=== PATIENT | female | born 1965 | race Caucasian/White ===

== ENCOUNTER → 2016-09-08 | Outpatient (CLI) | payer MEDICAID ==
[2016-09-08 09:37] LABS: CH 29.8; CHCM 33.3; HCT 49.1 % (34.0-46.0); HDW 2.33; HGB 16.3 gm/dL (11.4-16.0); MCH 29.8 pg (25.0-35.0); MCHC 33.2 g/dL (31.0-37.0); MCV 89.9 fL (80.0-100.0); Mean Platelet Volume 8.4; RBC 5.46 m/uL (3.80-5.40); RDW 12.7 % (11.5-15.5); WBC 15.5 k/uL (3.8-10.6)
[2016-09-08 09:53] LABS: ALT 37 U/L (9-52); AST 22 U/L (14-36); Alkaline Phosphatase 78 U/L (38-126); Anion Gap 11 mmol/L; Blood Urea Nitrogen 19 mg/dL (7-17); Calcium 9.6 mg/dL (8.4-10.2); Carbon Dioxide 25 mmol/L (22-30); Chloride 105 mmol/L (98-107); Cholesterol 156 mg/dL (<200); Glucose 177 mg/dL (74-99); HDL Cholesterol 39 mg/dL (40-60); Magnesium 1.7 mg/dL (1.6-2.3); Non-African American GFR(MDRD) >60 (>60 ml/min/1.73 sqM); Potassium 4.3 mmol/L (3.5-5.1); Sodium 141 mmol/L (137-145); Total Bilirubin 0.4 mg/dL (0.2-1.3); Total Protein 7.2 g/dL (6.3-8.2); Triglycerides 188 mg/dL (<150)
[2016-09-08 11:39] LABS: Hemoglobin A1C 8.8 % (4.2-6.1)
== END | disposition home or self-care (01) ==
LOC: LABWHC1 09:07
PROVIDERS: ATTEND Family Medicine
DX: E11.9 Type 2 diabetes mellitus without complications (principal); J44.9 Chronic obstructive pulmonary disease, unspecified; E46 Unspecified protein-calorie malnutrition; E78.00 Pure hypercholesterolemia, unspecified
CPT/HCPCS: 36415; 80053; 80061; 83036; 83735; 84443; 85027

== ENCOUNTER → 2016-09-14 | Outpatient (CLI) | payer MEDICAID ==
--- NOTE | 2016-09-14 08:07 | XR ---
EXAMINATION TYPE: XR chest 2V DATE OF EXAM: 09/14/2016 8:02 AM COMPARISON: 16 HISTORY: Shortness of breath TECHNIQUE: Frontal and lateral views of the chest are obtained. FINDINGS: There is no focal air space opacity, pleural effusion, or pneumothorax seen. The cardiac silhouette size is within normal limits. The osseous structures are intact. IMPRESSION: No acute cardiopulmonary process.
[2016-09-15 13:00] LABS: Alternaria alternata IgE <0.35 kU/L (<0.35); Asperg. fumagatus IgE <0.35 kU/L (<0.35); Asperg. fumagatus IgE Class CLASS 0; Cat Epith & Dander IgE <0.35 kU/L (<0.35); Cat Epith & Dander IgE Class CLASS 0; Clad herbarum IgE <0.35 kU/L (<0.35); Clad herbarum IgE Class CLASS 0; Com. Pigweed IgE <0.35 kU/L (<0.35); Com. Pigweed IgE Class CLASS 0; Common Ragweed IgE Class CLASS 0; Cow's Milk IgE Class CLASS 0; Dermato. farinae IgE <0.35 kU/L (<0.35); Dermato. farinae IgE Class CLASS 0; House Dust (Greer) IgE <0.35 kU/L (<0.35); House Dust (Greer) IgE Class CLASS 0; Maple (Box Elder) IgE <0.35 kU/L (<0.35); Maple (Box Elder) IgE Class CLASS 0; Penicillium notatum IgE Class CLASS 0; Timothy Grass IgE <0.35 kU/L (<0.35); Timothy Grass IgE Class CLASS 0
[2016-09-21 11:47] LABS: Mis test requested (Blood) HYPERSEN PNEUMONITIS
== END | disposition home or self-care (01) ==
LOC: RADXRMAIN 07:50
PROVIDERS: ATTEND Internal Medicine Sleep Medicine
DX: J44.9 Chronic obstructive pulmonary disease, unspecified (principal); B44.89 Other forms of aspergillosis
CPT/HCPCS: 36415; 71020; 82785; 86001; 86003; 86606; 86609

== ENCOUNTER → 2016-10-31 | Outpatient (CLI) | payer MEDICAID ==
[2016-10-31 16:36] VITALS: BP 112/81; PULSE 102; RESP 15; TEMP 97.9; BMI 40.3
--- NOTE | 2016-10-31 16:45 | P.HPBAR ---
Bariatric H&P - History & Physicial H&P Date: 10/31/16 History & Physicial: Visit/CC: Patient initial contact: Initial weight: Initial weight in pounds: Height: 5 ft 5.75 in Initial BMI: Last weight: Current weight: 112.446 kg Current weight in pounds: 247.90 Current BMI: 40.3 [place] body weight (based on NIH guidelines): 58.4 kg Excess body weight loss: The patient is a 51 year-old F who presents for Bariatric Assessment. The patient presents today for bariatric follow-up. I have not seen her over here. Her LAP-BAND was removed to gastric prolapse and issues of chronic dysphagia and GERD. The patient has had weight gain since her LAP-BAND was removed. Her current BMI is 40. The patient is requesting to have her LAP-BAND replaced. Past Medical History Past Medical History: Diabetes Mellitus, GERD/Reflux, Hearing Disorder / Deafness, Hyperlipidemia, Skin Disorder Additional Past Medical History / Comment(s): HAS BOILS IN SKIN FOLDS. VARICOSE VEINS, slightly hearing impaired bilateral, History of Any Multi-Drug Resistant Organisms: None Reported Past Surgical History: Bariatric Surgery, Ear Surgery Additional Past Surgical History / Comment(s): HX LAP BAND placed SURG 12/2003; removed due to prolapse in 2014. WILLIAM EAR SURG Past Anesthesia/Blood Transfusion Reactions: No Reported Reaction Past Psychological History: No Psychological Hx Reported Smoking Status: Current every day smoker Past Alcohol Use History: Occasional Past Drug Use History: None Reported - Past Family History Sister(s) Family Medical History: Cancer Surgical - Exam Vital Signs Temp Pulse Resp BP 97.9 F 102 H 15 112/81 10/31/16 16:19 10/31/16 16:19 10/31/16 16:19 10/31/16 16:19 - General well developed, no distress - Eyes PERRL - ENT normal pinna - Neck no masses - Respiratory normal expansion - Cardiovascular Rhythm: regular - Abdomen Abdomen: soft, non tender Bariatric Assessment & Plan Plan: A lengthy discussion with the patient and offered the option of sleeve gastrectomy or lap band. The patient wishes to undergo replacement of her LAP- BAND. We will attempt to obtain insurance authorization for LAP-BAND surgery. Bariatric Checklist Checklist: Plan: Checklist: EGD: 1. Hiatal hernia: 2. H. Pylori: HgbA1c: Vitamin D: Smoking: Current every day smoker Primary care physician referral: Psychiatry clearance: Cardiology clearance: Sleep study: Diet journal: VTE risk score: VTE risk level: Rehab needs at discharge:
== END ==
LOC: BARWHC3 15:04
PROVIDERS: ATTEND Surgery
DX: Z48.815 Encounter for surgical aftercare following surgery on the digestive system (principal); Z98.84 Bariatric surgery status; Z87.891 Personal history of nicotine dependence
CPT/HCPCS: 99201

== ENCOUNTER → 2017-01-05 | Outpatient (CLI) | payer MEDICAID ==
[2017-01-05 10:58] LABS: CH 30.8; HCT 46.4 % (34.0-46.0); HDW 2.31; HGB 15.5 gm/dL (11.4-16.0); MCH 30.4 pg (25.0-35.0); MCHC 33.5 g/dL (31.0-37.0); MCV 90.9 fL (80.0-100.0); Mean Platelet Volume 8.3; RDW 12.7 % (11.5-15.5); WBC 13.7 k/uL (3.8-10.6)
[2017-01-05 11:07] LABS: ALT 40 U/L (9-52); AST 19 U/L (14-36); Alkaline Phosphatase 83 U/L (38-126); Anion Gap 9 mmol/L; Blood Urea Nitrogen 12 mg/dL (7-17); Calcium 9.5 mg/dL (8.4-10.2); Carbon Dioxide 24 mmol/L (22-30); Chloride 107 mmol/L (98-107); Cholesterol 156 mg/dL (<200); Glucose 171 mg/dL (74-99); HDL Cholesterol 38 mg/dL (40-60); Magnesium 1.9 mg/dL (1.6-2.3); Non-African American GFR(MDRD) >60 (>60 ml/min/1.73 sqM); Potassium 4.4 mmol/L (3.5-5.1); Sodium 140 mmol/L (137-145); Total Bilirubin 0.5 mg/dL (0.2-1.3); Total Protein 6.5 g/dL (6.3-8.2); Triglycerides 211 mg/dL (<150)
[2017-01-05 12:25] LABS: Hemoglobin A1C 10.1 % (4.2-6.1)
== END | disposition home or self-care (01) ==
LOC: LABWHC1 10:18
PROVIDERS: ATTEND Family Medicine
DX: E11.9 Type 2 diabetes mellitus without complications (principal)
CPT/HCPCS: 36415; 80053; 80061; 83036; 83735; 85027

== ENCOUNTER → 2018-01-22 | Outpatient (CLI) | payer MEDICAID ==
[2018-01-22 11:57] LABS: HCT 50.8 % (34.0-46.0); HGB 16.7 gm/dL (11.4-16.0); MCH 29.6 pg (25.0-35.0); MCHC 32.8 g/dL (31.0-37.0); MCV 90.1 fL (80.0-100.0); Mean Platelet Volume 8.5; Platelet Count 334 k/uL (150-450); RBC 5.63 m/uL (3.80-5.40); RDW 12.9 % (11.5-15.5); WBC 11.8 k/uL (3.8-10.6)
[2018-01-22 12:18] LABS: ALT 36 U/L (9-52); AST 18 U/L (14-36); Alkaline Phosphatase 92 U/L (38-126); Anion Gap 6 mmol/L; Blood Urea Nitrogen 21 mg/dL (7-17); Calcium 9.4 mg/dL (8.4-10.2); Carbon Dioxide 27 mmol/L (22-30); Chloride 107 mmol/L (98-107); Cholesterol 156 mg/dL (<200); Glucose 268 mg/dL (74-99); HDL Cholesterol 38 mg/dL (40-60); LDL Cholesterol,Calculated 79 mg/dL (0-99); Magnesium 1.8 mg/dL (1.6-2.3); Potassium 4.5 mmol/L (3.5-5.1); Sodium 140 mmol/L (137-145); Total Bilirubin 0.5 mg/dL (0.2-1.3); Total Protein 6.8 g/dL (6.3-8.2); Triglycerides 197 mg/dL (<150)
[2018-01-22 21:01] LABS: Hemoglobin A1C 13.2 % (4.0-6.0)
== END | disposition home or self-care (01) ==
LOC: LABWHC1 11:03
PROVIDERS: ATTEND Family Medicine
DX: E11.9 Type 2 diabetes mellitus without complications (principal); K21.9 Gastro-esophageal reflux disease without esophagitis; E78.5 Hyperlipidemia, unspecified; Z79.4 Long term (current) use of insulin
CPT/HCPCS: 36415; 80053; 80061; 82043; 82570; 83036; 83735; 84443; 84480; 85027

== ENCOUNTER 2018-02-07 07:30 | Day surgery (SDC) | payer MEDICAID ==
[2018-02-05 09:56] VITALS: BMI 39.9
[~2018-02-07 07:30] MED LIST: LACTATED RINGERS 1,000 ML IV SCH; LIDOCAINE 1% 20 ML VIAL (10MG/ML) FOR IV START INTRADERMA PRN
[2018-02-07 08:15] VITALS: RESP 16; TEMP 97.2
[2018-02-07 08:20] LABS: Glucose,Whole Blood 177 mg/dL (75-99)
[2018-02-07] MEDS ORDERED: PROPOFOL 10 MG/ML 20 ML VIAL IV ONE (08:29)
[2018-02-07] MEDS ORDERED: LIDOCAINE 1% INJ 10MG/ML (20 ML MDV) ONE (08:29)
--- NOTE | 2018-02-07 08:52 | P.PCN ---
Date of Procedure: 02/07/18 Procedure(s) Performed: BRIEF HISTORY: Patient is a in 52-year-old pleasant white female scheduled for an elective colonoscopy as a part of screening for colorectal neoplasia. PROCEDURE PERFORMED: Colonoscopy. PREOPERATIVE DIAGNOSIS: Screening for colon cancer. IV sedation per Anesthesia. PROCEDURE: After informed consent was obtained, the patient, was brought into the endoscopy unit. IV sedation was administered by Anesthesia under continuous monitoring. Digital rectal examination was normal. Initially the Olympus CF- 160 flexible video colonoscope was then inserted in the rectum, gradually advanced into the cecum without any difficulty. Careful examination was performed as the scope was gradually being withdrawn. Ileocecal valve and the appendiceal orifice were visualized and appeared normal. Prep was excellent. Mucosa of the cecum, ascending colon, transverse colon, descending colon, sigmoid colon, and rectum appeared normal. Retroflexion was performed in the rectum and no lesions were seen. The patient tolerated the procedure well. IMPRESSION: Normal-appearing colon from rectum to cecum with no evidence of colorectal neoplasia. RECOMMENDATIONS: Findings of this examination were discussed with the patient WELL A FAMILY. SHE WAS ADVISED TO HAVE A REPEAT SCREENING COLONOSCOPY IN 10 YEARS..
[2018-02-07 08:55] VITALS: PULSE 80
[2018-02-07 09:09] VITALS: BP 131/79
[2018-02-07 09:14] LABS: Glucose,Whole Blood 184 mg/dL (75-99)
== END 2018-02-07 09:37 | disposition home or self-care (01) ==
LOC: ORWHC2ENDO 07:30
PROVIDERS: ATTEND Internal Medicine Gastroenterology
DX: Z12.11 Encounter for screening for malignant neoplasm of colon (principal); I10 Essential (primary) hypertension; E78.5 Hyperlipidemia, unspecified; J45.909 Unspecified asthma, uncomplicated; E11.9 Type 2 diabetes mellitus without complications; Z79.84 Long term (current) use of oral hypoglycemic drugs; Z79.82 Long term (current) use of aspirin; Z79.899 Other long term (current) drug therapy; Z88.0 Allergy status to penicillin
CPT/HCPCS: 81025; J2001; J2704; G0121; 45378

== ENCOUNTER → 2018-04-28 | Outpatient (CLI) | payer MEDICAID ==
[2018-04-28 09:23] LABS: HCT 43.3 % (34.0-46.0); HGB 14.6 gm/dL (11.4-16.0); MCH 31.2 pg (25.0-35.0); MCHC 33.6 g/dL (31.0-37.0); MCV 92.7 fL (80.0-100.0); Mean Platelet Volume 8.2; Platelet Count 305 k/uL (150-450); RBC 4.67 m/uL (3.80-5.40); RDW 12.6 % (11.5-15.5); WBC 12.8 k/uL (3.8-10.6)
[2018-04-28 10:32] LABS: ALT 49 U/L (9-52); AST 25 U/L (14-36); Albumin 3.8 g/dL (3.5-5.0); Alkaline Phosphatase 84 U/L (38-126); Anion Gap 8 mmol/L; Blood Urea Nitrogen 12 mg/dL (7-17); Calcium 9.3 mg/dL (8.4-10.2); Carbon Dioxide 26 mmol/L (22-30); Chloride 107 mmol/L (98-107); Cholesterol 155 mg/dL (<200); Glucose 143 mg/dL (74-99); HDL Cholesterol 41 mg/dL (40-60); LDL Cholesterol,Calculated 85 mg/dL (0-99); Magnesium 1.8 mg/dL (1.6-2.3); Potassium 4.6 mmol/L (3.5-5.1); Sodium 141 mmol/L (137-145); Total Bilirubin 0.3 mg/dL (0.2-1.3); Total Protein 6.7 g/dL (6.3-8.2); Triglycerides 146 mg/dL (<150)
[2018-04-28 19:43] LABS: Hemoglobin A1C 8.5 % (4.0-6.0)
== END | disposition home or self-care (01) ==
LOC: LABWHC1 08:17
PROVIDERS: ATTEND Family Medicine
DX: E11.9 Type 2 diabetes mellitus without complications (principal); E78.00 Pure hypercholesterolemia, unspecified; R53.83 Other fatigue; E66.01 Morbid (severe) obesity due to excess calories
CPT/HCPCS: 36415; 80053; 80061; 83036; 83735; 84443; 84481; 85027

== ENCOUNTER → 2019-03-05 | Outpatient (CLI) | payer MEDICAID ==
[2019-03-05 08:31] LABS: HCT 48.3 % (34.0-46.0); HGB 16.1 gm/dL (11.4-16.0); MCHC 33.3 g/dL (31.0-37.0); MCV 90.1 fL (80.0-100.0); Mean Platelet Volume 7.7; Platelet Count 343 k/uL (150-450); RBC 5.35 m/uL (3.80-5.40); RDW 12.6 % (11.5-15.5); WBC 14.3 k/uL (3.8-10.6)
[2019-03-05 16:35] LABS: African American GFR (CKD) 98.9 (60.0-200.0); Albumin 4.4 g/dL (3.80-4.90); BUN/Creat Ratio 21.25 Ratio (12.00-20.00); Calcium 9.6 mg/dL (8.7-10.3); Globulin 2.2 g/dL (1.6-3.3); LDL Cholesterol,Calculated 69.6 mg/dL (0.0-131.0); Total Bilirubin 0.3 mg/dL (0.2-1.2); Total Protein 6.6 g/dL (6.2-8.2); VLDL Calculation 47.4 mg/dL (5.00-40.00)
[2019-03-05 18:19] LABS: Hemoglobin A1C 10.6 % (4.0-6.0)
== END | disposition home or self-care (01) ==
LOC: LABWHC1 07:58
PROVIDERS: ATTEND Family Medicine
DX: E11.9 Type 2 diabetes mellitus without complications (principal); E66.9 Obesity, unspecified; I10 Essential (primary) hypertension; J44.9 Chronic obstructive pulmonary disease, unspecified; E55.9 Vitamin D deficiency, unspecified
CPT/HCPCS: 36415; 80053; 80061; 82306; 83036; 84443; 85027

== ENCOUNTER → 2021-12-14 | Outpatient (CLI) | payer MEDICAID ==
[2021-12-14 11:28] LABS: African American GFR (CKD) >90 (>60 ml/min/1.73 sqM); Blood Urea Nitrogen 19 mg/dL (7-17); Non-African American GFR(CKD) >90 (>60 ml/min/1.73 sqM)
--- NOTE | 2021-12-14 12:42 | CT ---
EXAMINATION TYPE: CT angio chest DATE OF EXAM: 12/14/2021 COMPARISON: No previous CT scan is available for comparison. HISTORY: Chest pain, dyspnea CT DLP: 454 mGy.cm. Automated Exposure Control for Dose Reduction was Utilized. TECHNIQUE AND CONTRAST: CTA scan of the thorax is performed without and with IV Contrast, patient injected with 100 ml mL of Isovue 370, pulmonary angiogram protocol. MIP Images are created on an independent workstation and reviewed. FINDINGS: Architectural images. No definite filling defect within the pulmonary trunk, main pulmonary arteries, lobar and segmental branches to suggest pulmonary embolism. Subsegmental branches are suboptimally a ssessed. The pulmonary trunk measures 2.7 cm. No cardiomegaly. Scattered arterial and coronary athero sclerotic calcifications. Bovine aortic arch. Unremarkable lungs. Patent trachea and main bronchi. No pleural or pericardial effusion. Scattered jones bcentimeter bilateral hilar and mediastinal lymph nodes. No pathologically enlarged lymph nodes in th e chest. Bulky liver. Left adrenal lesion measuring 3 cm, suboptimally assessed by this CT scan. Recommend fur ther elective adrenal protocol CT scan. Degenerative changes of the thoracic spine with T6-7 central posterior disc protrusion. No aggressive bone lesion. IMPRESSION: No major or central pulmonary embolism with the limitation of the artifactual images. 3 cm left adrenal lesion which could represent an adrenal adenoma, suboptimally assessed by this CT s can. Recommend further elective adrenal protocol CT scan. Other incidental findings as described abov e.
== END | disposition home or self-care (01) ==
LOC: RADCTMAIN 10:43
PROVIDERS: ATTEND Family Medicine
DX: E27.9 Disorder of adrenal gland, unspecified (principal); R06.00 Dyspnea, unspecified; R07.9 Chest pain, unspecified
CPT/HCPCS: 82565; 84520; 71275; Q9967

== ENCOUNTER → 2021-12-17 | Outpatient (CLI) | payer MEDICAID ==
--- NOTE | 2021-12-17 11:06 | CA ---
Stress Echo Report Sofi Covington Age: 56 Gender: F : 1965 Exam Date: 12/17/2021 09:40 Exam Location: [facility] Ht (in): 66 Wt (lb): 225 Ordering Physician: Summer Pandya MD Referring Physician: KARSON,, Bag Machine Operator: Holli Monson RDCS Technologist Procedure CPT: Indication: R07.9 CHEST PAIN ICD-9 Codes: Rhythm: Patient History: Atypical angina, Cardiac arrhythmia, Hyperlipidemia, Diabetes mellitus, Hypertension, Smoker, Family history Cardiac Medications: LISINOPRIL,,,,, Medications in past 24 hours: Contrast: Stress Results Protocol: Candido Total dose(mL): Exercise Duration (min:sec): Max ST Depression (mm): Angina Score: Galvin Score: METS: 8.5 Resting HR: 102 Resting BP: 134 / 67 Peak HR: 162 Peak BP: 257 / 77 Max Predicted HR: 166 98 % Max Predicted HR Target HR: 141 Double Product: [id number] Stress Summary: BP Response: Reason for Termination: MAX EXERTION/TARGET HR Cardiac Symptoms: NO SYMPTOMS ECG Analysis Resting ECG: Sinus rhythm Stress ECG: Sinus rhythm without any evidence of ischemia Arrhythmia: None Echo Analysis Resting Echo: Normal wall motion and thickening Peak Echo Analysis: Augmentation wall motion and thickening in all the segments MEASUREMENTS (Male/Female) Normal Values CONCLUSIONS 1. Negative stress test. #2. Negative stress echo Dr. Jorge Earl MD (Electronically Signed) Final Date: 17 December 2021 11:05
== END | disposition home or self-care (01) ==
LOC: RADNMMAIN 09:17
PROVIDERS: ATTEND Family Medicine
DX: R07.9 Chest pain, unspecified (principal)
CPT/HCPCS: 93351

== ENCOUNTER → 2022-11-17 | Outpatient (CLI) | payer MEDICAID ==
--- NOTE | 2022-11-18 08:34 | MM ---
Reason for Exam: Screening (asymptomatic). Last mammogram was performed 6 year(s) and 6 month(s) ago. Patient History: Menarche at age 14. Patient has no children. Postmenopausal. Maternal aunt had breast cancer. Sister had breast cancer, age 55. Sister had ovarian cancer under age 50. Risk Values: Micaela 5 year model risk: 2.3%. NCI Lifetime model risk: 15.5%. Prior Study Comparison: 05/28/2012 Bilateral Screening Mammogram, [facility]. 05/31/2013 Bilateral Screening Mammogram, [facility]. 06/02/2014 Bilateral Screening Mammogram, [facility]. 05/13/2016 Bilateral Screening Mammogram, [facility]. Tissue Density: There are scattered fibroglandular densities. Findings: Analyzed By CAD. There is no suspicious group of microcalcifications or new suspicious mass in either breast. Overall Assessment: Negative, BI-RAD 1 Management: Screening Mammogram of both breasts in 1 year. A clinical breast exam by your physician is recommended on an annual basis and results should be correlated with mammographic findings. Electronically signed and approved by: Reza Asif D.O.
== END | disposition home or self-care (01) ==
LOC: RADMAMWWP 07:15
PROVIDERS: ATTEND Family Medicine
DX: Z12.31 Encounter for screening mammogram for malignant neoplasm of breast (principal); Z80.3 Family history of malignant neoplasm of breast; Z78.0 Asymptomatic menopausal state
CPT/HCPCS: 77063; 77067

== ENCOUNTER → 2022-12-16 | Outpatient (CLI) | payer MEDICAID ==
--- NOTE | 2022-12-16 09:42 | CTL ---
EXAMINATION TYPE: CT Low Dose Lung DATE OF EXAM ORDERED: 12/16/2022 HISTORY: 57-year-old female Z87.891, current smoker, 40 pack-year history. Lung cancer screening CT DLP: 116.[address] CTDI: 4.8 mGy Automated exposure control for dose reduction was used. SCREENING VISIT: Baseline COMPARISON: 12/14/2021 TECHNIQUE: Low dose computed tomography scan was performed through the chest with coronal and sagitta l reconstructions. CT DIAGNOSTIC QUALITY: Satisfactory FINDINGS: Heart normal size without pericardial effusion. Aorta normal caliber with bovine configuration to the aortic arch. No thoracic lymphadenopathy by CT size criteria. Some scattered mild mosaic attenuation may reflect small airways disease. No consolidation or pleural effusion. Benign calcified granuloma right midlung. No suspicious pulmonary nodules or masses. Post surgical change at the GE junction. Partially visualized nodule of the left adrenal gland measuring at least 2.8 cm. This was present jessica k on 12/14/2021 was well. Bones: Mild degenerative disc disease mid to lower thoracic spine. IMPRESSION: 1. LungRADS 1, negative. No suspicious pulmonary nodules are seen. Benign calcified granuloma right m idlung. 2. Some scattered mild mosaic attenuation may reflect small airways disease. Recommend smoking cessat ion. 3. Known left adrenal nodule, probably adrenal adenoma. CT LUNG RAD AND CT CHEST RECOMMENDATION: Lung-Rad 1 Negative: Continue annual screening with LDCT in 12 months. S Modifier (other clinically significant findings): S, known left adrenal nodule.
== END | disposition home or self-care (01) ==
LOC: RADCTMAIN 06:58
PROVIDERS: ATTEND Family Medicine
DX: Z12.2 Encounter for screening for malignant neoplasm of respiratory organs (principal); J84.10 Pulmonary fibrosis, unspecified; F17.210 Nicotine dependence, cigarettes, uncomplicated
CPT/HCPCS: 71271

== ENCOUNTER 2023-04-21 15:28 | Emergency (ER) | payer MEDICAID ==
[2023-04-21 15:45] VITALS: TEMP 98.1
[2023-04-21] MEDS ORDERED: SODIUM CHLORIDE 0.9% 500 ML 500 ML IV STA (16:31)
--- NOTE | 2023-04-21 16:31 | ED ---
Neuro HPI - General Chief Complaint: Neuro Symptoms/Deficit Stated Complaint: high bp blurry vision Time Seen by Provider: 04/21/23 16:31 Source: patient, RN notes reviewed, old records reviewed Mode of arrival: ambulatory Limitations: no limitations - History of Present Illness Is the patient presenting with stroke symptoms?: No -: week(s), month(s) Initial Comments: This is a 57-year-old female to the emergency department for evaluation of medical problems. Patient presents with a plethora medical complaints but main reason for visit today is hypertensive. Patient cannot get her blood pressure control was brought to the ER for evaluation today. Patient has upper extremity numbness and tingling. Patient believes she has some sort of ear complaint with dizziness when ambulating. Location: left arm, right arm History of same: Yes Place: home Severity: mild Quality: weak, numb, tingling Improves With: none Worsens With: none On Anticoagulants: No Context: gradual onset Associated Symptoms: denies other symptoms - Related Data Home Medications: Home Medications Medication Instructions Recorded Confirmed metFORMIN HCL [Glucophage] 850 mg PO BID 10/31/16 04/21/23 Albuterol Inhaler [Ventolin Hfa 1 - 2 puff INHALATION RT-Q6H PRN 02/05/18 04/21/23 Inhaler] lisinopriL [Zestril] 5 mg PO DAILY 02/05/18 04/21/23 Atorvastatin [Lipitor] 20 mg PO HS 04/21/23 04/21/23 Insulin Detemir [Levemir Flexpen] 60 units SQ BID 04/21/23 04/21/23 Lutein 20 mg PO DAILY 04/21/23 04/21/23 Multivitamins, Thera [Multivitamin 1 tab PO DAILY 04/21/23 04/21/23 (formulary)] QUEtiapine [SEROquel] 50 mg PO HS 04/21/23 04/21/23 Tirzepatide [Mounjaro] 5 mg SQ TH 04/21/23 04/21/23 Previous Rx's Medication Instructions Recorded Azithromycin [Zithromax] 500 mg PO DAILY #5 tab 04/21/23 Allergies/Adverse Reactions: Allergies Allergy/AdvReac Type Severity Reaction Status Date / Time Penicillins Allergy Unknown Verified 04/21/23 16:58 Childhood adhesive AdvReac BLISTERS Verified 04/21/23 16:58 METALS AdvReac Rash/Hives Uncoded 04/21/23 15:44 Review of Systems ROS Statement: Those systems with pertinent positive or pertinent negative responses have been documented in the HPI. ROS Other: All systems not noted in ROS Statement are negative. General Exam - General Exam Comments Initial Comments: NIH of 0 Limitations: no limitations General appearance: alert, in no apparent distress Head exam: Present: atraumatic, normocephalic, normal inspection Eye exam: Present: normal appearance, PERRL, EOMI. Absent: scleral icterus, conjunctival injection, periorbital swelling ENT exam: Present: normal exam, mucous membranes moist Neck exam: Present: normal inspection. Absent: tenderness, meningismus, lymphadenopathy Respiratory exam: Present: normal lung sounds bilaterally. Absent: respiratory distress, wheezes, rales, rhonchi, stridor Cardiovascular Exam: Present: regular rate, normal rhythm, normal heart sounds. Absent: systolic murmur, diastolic murmur, rubs, gallop, clicks GI/Abdominal exam: Present: soft, normal bowel sounds. Absent: distended, tenderness, guarding, rebound, rigid Extremities exam: Present: normal inspection, full ROM, normal capillary refill. Absent: tenderness, pedal edema, joint swelling, calf tenderness Back exam: Present: normal inspection Neurological exam: Present: alert, oriented X3, CN II-XII intact Psychiatric exam: Present: normal affect, normal mood Skin exam: Present: warm, dry, intact, normal color. Absent: rash Stroke MDM - Lab Data Result diagrams: 04/21/23 17:14 04/21/23 17:14 Lab Results 04/21/23 04/21/23 04/21/23 Range/Units 17:14 17:14 17:14 WBC 16.2 H (3.8-10.6) k/uL RBC 5.41 H (3.80-5.40) m/uL Hgb 16.3 H (11.4-16.0) gm/dL Hct 49.0 H (34.0-46.0) % MCV 90.5 (80.0-100.0) fL MCH 30.1 (25.0-35.0) pg MCHC 33.2 (31.0-37.0) g/dL RDW 12.4 (11.5-15.5) % Plt Count 347 (150-450) k/uL MPV 8.6 Neutrophils % 69 % Lymphocytes % 23 % Monocytes % 3 % Eosinophils % 4 % Basophils % 1 % Neutrophils # 11.2 H (1.3-7.7) k/uL Lymphocytes # 3.7 (1.0-4.8) k/uL Monocytes # 0.5 (0-1.0) k/uL Eosinophils # 0.6 (0-0.7) k/uL Basophils # 0.1 (0-0.2) k/uL PT 9.8 L (10.0-12.5) sec INR 0.9 (<1.2) APTT 26.3 (22.0-30.0) sec Sodium 136 L (137-145) mmol/L Potassium 4.3 (3.5-5.1) mmol/L Chloride 102 (98-107) mmol/L Carbon Dioxide 20 L (22-30) mmol/L Anion Gap 14 mmol/L BUN 13 (7-17) mg/dL Creatinine 0.50 L (0.52-1.04) mg/dL Est GFR (CKD-EPI)AfAm >90 (>60 ml/min/1.73 sqM) Est GFR (CKD-EPI)NonAf >90 (>60 ml/min/1.73 sqM) Glucose 299 H (74-99) mg/dL Calcium 9.8 (8.4-10.2) mg/dL Phosphorus 3.9 (2.5-4.5) mg/dL Magnesium 1.6 (1.6-2.3) mg/dL Total Bilirubin 0.4 (0.2-1.3) mg/dL AST 36 (14-36) U/L ALT 51 H (4-34) U/L Alkaline Phosphatase 119 (38-126) U/L Troponin I (0.000-0.034) ng/mL NT-Pro-B Natriuret Pep <20 pg/mL Total Protein 7.6 (6.3-8.2) g/dL Albumin 4.5 (3.5-5.0) g/dL 04/21/23 Range/Units 17:14 WBC (3.8-10.6) k/uL RBC (3.80-5.40) m/uL Hgb (11.4-16.0) gm/dL Hct (34.0-46.0) % MCV (80.0-100.0) fL MCH (25.0-35.0) pg MCHC (31.0-37.0) g/dL RDW (11.5-15.5) % Plt Count (150-450) k/uL MPV Neutrophils % % Lymphocytes % % Monocytes % % Eosinophils % % Basophils % % Neutrophils # (1.3-7.7) k/uL Lymphocytes # (1.0-4.8) k/uL Monocytes # (0-1.0) k/uL Eosinophils # (0-0.7) k/uL Basophils # (0-0.2) k/uL PT (10.0-12.5) sec INR (<1.2) APTT (22.0-30.0) sec Sodium (137-145) mmol/L Potassium (3.5-5.1) mmol/L Chloride (98-107) mmol/L Carbon Dioxide (22-30) mmol/L Anion Gap mmol/L BUN (7-17) mg/dL Creatinine (0.52-1.04) mg/dL Est GFR (CKD-EPI)AfAm (>60 ml/min/1.73 sqM) Est GFR (CKD-EPI)NonAf (>60 ml/min/1.73 sqM) Glucose (74-99) mg/dL Calcium (8.4-10.2) mg/dL Phosphorus (2.5-4.5) mg/dL Magnesium (1.6-2.3) mg/dL Total Bilirubin (0.2-1.3) mg/dL AST (14-36) U/L ALT (4-34) U/L Alkaline Phosphatase (38-126) U/L Troponin I <0.012 (0.000-0.034) ng/mL NT-Pro-B Natriuret Pep pg/mL Total Protein (6.3-8.2) g/dL Albumin (3.5-5.0) g/dL - NIH Stroke Scale 1a. Level of Consciousness: (0) alert 1b. LOC Questions: (0) answers correctly 1c. LOC Commands: (0) performs tasks correctly 2. Best Gaze: (0) normal 3. Visual: (0) no visual loss 4. Facial Palsy: (0) normal symmetrical movement 5a. Motor Arm Left: (0) no drift 5b. Motor Arm Right: (0) no drift 6a. Motor Leg Left: (0) no drift 6b. Motor Leg Right: (0) no drift 7. Limb Ataxia: (0) absent 8. Sensory: (0) normal 9. Best Language: (0) no aphasia 10. Dysarthria: (0) normal 11. Extinction/Inattention: (0) no abnormality - Medical Decision Making 58 female to the emergency department for evaluation of strokelike symptoms paresthesia, blurry vision and elevated blood pressure. Patient is concern for symptoms are having a stroke currently here in the ER. All testing is normal here in the ER, patient does have findings here in the ER can be discharged home - Radiology Data Radiology results: report reviewed (CT brain CT head neck is negative for acute disease), image reviewed - EKG Data -: EKG Interpreted by Me (EKG is sinus 98. 150 QRS prolonged QTC 397) Past Medical History Past Medical History: Asthma, Diabetes Mellitus, Hearing Disorder / Deafness, Hyperlipidemia, Hypertension, Skin Disorder, Sleep Apnea/CPAP/BIPAP Additional Past Medical History / Comment(s): VARICOSE VEINS, slightly hearing impaired bilateral, no CPAP used, rash on scalp, History of Any Multi-Drug Resistant Organisms: None Reported Past Surgical History: Bariatric Surgery, Ear Surgery, Tonsillectomy Additional Past Surgical History / Comment(s): nasal septum, LAP BAND placed 12/2003 then removed due to prolapse in 2014. mult WILLIAM EAR tubes as child, rt ear drum reconstrucion, laser eye surgery-william Past Anesthesia/Blood Transfusion Reactions: Motion Sickness Past Psychological History: Depression Past Alcohol Use History: Occasional Past Drug Use History: None Reported - Past Family History Sister(s) Family Medical History: Cancer Mother Family Medical History: Cancer Course Vital Signs 04/21/23 04/21/23 15:41 20:26 Temperature 98.1 F Pulse Rate 103 H 88 Respiratory 20 16 Rate Blood Pressure 146/82 158/88 O2 Sat by Pulse 95 96 Oximetry - Reevaluation(s) Reevaluation #1: 04/21/23 18:05 Medical records reviewed Reevaluation #2: Patient symptoms are improving here in the ER, no focal neurological findings Reevaluation #3: Patient informed of results and questions answered Reevaluation #4: 04/21/23 18:05 Was pt. sent in by a medical professional or institution ([facility], [facility], urgent care, hospital, or assisted...) When possible be specific @ -no Did you speak to anyone other than the patient for history (EMS, parent, family, police, friend...)? What history was obtained from this source @ -no Did you review nursing and triage notes (agree or disagree)? Why? @ -agree Are old charts reviewed (outside hosp., previous admission, EMS record, old EKG, old radiological studies, urgent care reports/EKG's, assisted records)? Report findings @ -yes Differential Diagnosis (chest pain, altered mental status, abdominal pain women, abdominal pain men, vaginal bleeding, weakness, fever, dyspnea, syncope, headache, dizziness, GI bleed, back pain, seizure, CVA, palpatations, mental health, musculoskeletal)? @ -prior EKG interpreted by me (3pts min.). @ -yes X-rays interpreted by me (1pt min.). @ -no CT interpreted by me (1pt min.). @ -yes U/S interpreted by me (1pt. min.). @ -no What testing was considered but not performed or refused? (CT, X-rays, U/S, labs)? Why? @ -none What meds were considered but not given or refused? Why? @ -none Did you discuss the management of the patient with other professionals (professionals i.e. [facility], [facility], lab, RT, psych nurse, social media sr strategy manager, employment evaluator/case manager, teacher, food safety officer, casey saw operator)? Give summary @ -no Was smoking cessation discussed for >3mins.? @ -no Was critical care preformed (if so, how long)? @ -no Were there social determinants of health that impacted care today? How? (Homelessness, low income, unemployed, alcoholism, drug addiction, transportation, low edu. Level, literacy, decrease access to med. care, group home, rehab)? @ -none Was there de-escalation of care discussed even if they declined (Discuss DNR or withdrawal of care, Hospice)? DNR status @ -no What co-morbidities impacted this encounter? (DM, HTN, Smoking, COPD, CAD, Cancer, CVA, ARF, Chemo, Hep., AIDS, mental health diagnosis, sleep apnea, morbid obesity)? @ -none Was patient admitted / discharged? Hospital course, mention meds given and route, prescriptions, significant lab abnormalities, going to OR and other pertinent info. @ - 58 female to the emergency department for evaluation of strokelike symptoms paresthesia, blurry vision and elevated blood pressure. Patient is concern for symptoms are having a stroke currently here in the ER. All testing is normal here in the ER, patient does have findings here in the ER can be discharged home Discharge Undiagnosed new problem with uncertain prognosis? @ -no Drug Therapy requiring intensive monitoring for toxicity (Heparin, Nitro, Insulin, Cardizem)? @ -no Were any procedures done? @ -no Diagnosis/symptom? @ - hypertension paresthesias Acute, or Chronic, or Acute on Chronic? @ -Acute Uncomplicated (without systemic symptoms) or Complicated (systemic symptoms)? @ -Complicated Side effects of treatment? @ -no Exacerbation, Progression, or Severe Exacerbation? @ -exacerbation Poses a threat to life or bodily function? How? (Chest pain, [place], [place], pneumonia, PE, COPD, DKA, ARF, appy, cholecystitis, CVA, Diverticulitis, Homicidal, Suicidal, threat to staff... and all critical care pts) @ -yes with possibility of acute CVA Reevaluation #5: Differential CVA Ischemic stroke, hemorrhagic stroke, brain tumor, atypical migraine, Wernicke's encephalopathy, seizure, multiple sclerosis, meningitis, encephalitis, hypoglycemia, Guillain-Vela, electrolytes disturbance, myasthenia gravis.... This is not meant to be an all-inclusive list Critical Care Time Critical Care Time: Yes Total Critical Care Time: 31 Disposition Clinical Impression: Hypertension, Paresthesia of arm Disposition: HOME SELF-CARE Condition: Good Instructions (If sedation given, give patient instructions): Paresthesia (ED), Hypertension (ED) Prescriptions: Azithromycin [Zithromax] 500 mg PO DAILY #5 tab Is patient prescribed a controlled substance at d/c from ED?: No Referrals: Summer Pandya MD [Primary Care Provider] - 1-2 days Time of Disposition: 20:20
[2023-04-21 17:36] LABS: Basophils # (A) 0.1 k/uL (0-0.2); Basophils % (A) 1 %; Eosinophils # (A) 0.6 k/uL (0-0.7); Eosinophils % (A) 4 %; HGB 16.3 gm/dL (11.4-16.0); Lymphocytes # (A) 3.7 k/uL (1.0-4.8); Lymphocytes % (A) 23 %; MCH 30.1 pg (25.0-35.0); MCHC 33.2 g/dL (31.0-37.0); MCV 90.5 fL (80.0-100.0); Mean Platelet Volume 8.6; Monocytes # (A) 0.5 k/uL (0-1.0); Monocytes % (A) 3 %; Neutrophils # (A) 11.2 k/uL (1.3-7.7); Neutrophils % (A) 69 %; Platelet Count 347 k/uL (150-450); RBC 5.41 m/uL (3.80-5.40); RDW 12.4 % (11.5-15.5); WBC 16.2 k/uL (3.8-10.6)
[2023-04-21 17:46] LABS: INR 0.9 (<1.2)
[2023-04-21 17:47] LABS: Partial Thromboplastin Time 26.3 sec (22.0-30.0)
[2023-04-21 17:53] LABS: ALT 51 U/L (4-34); AST 36 U/L (14-36); African American GFR (CKD) >90 (>60 ml/min/1.73 sqM); Albumin 4.5 g/dL (3.5-5.0); Alkaline Phosphatase 119 U/L (38-126); Anion Gap 14 mmol/L; Blood Urea Nitrogen 13 mg/dL (7-17); Calcium 9.8 mg/dL (8.4-10.2); Carbon Dioxide 20 mmol/L (22-30); Chloride 102 mmol/L (98-107); Glucose 299 mg/dL (74-99); Magnesium 1.6 mg/dL (1.6-2.3); Non-African American GFR(CKD) >90 (>60 ml/min/1.73 sqM); Phosphorus 3.9 mg/dL (2.5-4.5); Potassium 4.3 mmol/L (3.5-5.1); Sodium 136 mmol/L (137-145); Total Bilirubin 0.4 mg/dL (0.2-1.3); Total Protein 7.6 g/dL (6.3-8.2)
[2023-04-21 17:59] LABS: Prothrombin Time 9.8 sec (10.0-12.5)
[2023-04-21 18:00] LABS: NT-Pro-B-Type Natriuretic Pept <20 pg/mL
--- NOTE | 2023-04-21 20:17 | CT ---
EXAMINATION TYPE: CT brain wo con CT DLP: 1183.4 mGycm, Automated exposure control for dose reduction was used. DATE OF EXAM: 04/21/2023 5:52 PM COMPARISON: None. CLINICAL INDICATION:Female, 57 years old with history of weakness, Weakness, dizziness. TECHNIQUE: Brain: Axial CT images of the brain were obtained with coronal and sagittal reformats created and rev iewed. Contrast used: None. Oral contrast used: None. FINDINGS: Brain: Extra-axial spaces: No abnormal extra-axial fluid collections. Ventricular system: Within normal limits Cerebral parenchyma: No acute intraparenchymal hemorrhage or mass effect. The monique-white junction is well differentiated. Cerebellum: Unremarkable. Mass effect: No evidence of midline shift. Intracranial vasculature: unremarkable Soft tissues: Normal. Calvarium/osseous structures: No depressed skull fracture. Paranasal sinuses and mastoid air cells: Small polyp or mucous retention cyst in the left maxillary s inus. There may been prior maxillary sinus surgery. There may have been prior mastoid surgery. Partia lly opacified right mastoid air cells. Correlate clinically. Visualized orbits: Orbital contents are intact. IMPRESSION: No acute intracranial CT abnormality.
[2023-04-21] MEDS ORDERED: AZITHROMYCIN 500 MG TAB PO STA (20:27)
[2023-04-21 20:30] VITALS: BP 158/88; PULSE 88; RESP 16
== END 2023-04-21 20:37 | disposition home or self-care (01) ==
LOC: EC 15:28
DX: I10 Essential (primary) hypertension (principal); R20.2 Paresthesia of skin; E11.9 Type 2 diabetes mellitus without complications; J45.909 Unspecified asthma, uncomplicated; E78.5 Hyperlipidemia, unspecified; F32.A Depression, unspecified; Z79.4 Long term (current) use of insulin; Z79.84 Long term (current) use of oral hypoglycemic drugs; Z88.0 Allergy status to penicillin; Z79.899 Other long term (current) drug therapy; Z91.09 Other allergy status, other than to drugs and biological substances
CPT/HCPCS: 36415; 70450; 80053; 83735; 83880; 84100; 84484; 85025; 85610; 85730; 93005; 96360; 99285

== ENCOUNTER → 2023-07-18 | Outpatient (CLI) | payer MEDICAID ==
--- NOTE | 2023-07-18 16:30 | P.SLEEP ---
History of Present Illness H&P Date: 07/18/23 This is a 58-year-old female patient was coming in regarding symptoms of obstructive sleep apnea. The patient was diagnosed having obstructive sleep apnea many years back. Back then, due to insurance related issues, she was not able to receive any treatment and for that reason she is coming to be reevaluated. The patient has an Coolin score of 14 and she is actively symptomatic and the patient has chronic hypersomnia and sleepiness during the day. 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 She has difficulties with concentration and memory as the patient is also tired and sleepy during the day. She snores loud and she has witnessed apneas. She goes to bed at around 9 PM, wakes up constantly throughout the night because of choking and gasping and ultimately she gets out of bed at around 4 AM in the morning. The same schedule is being followed up at the weekend. The patient is obese. No recent weight gain and most of the weight gain has occurred over the years. Her sleep is fragmented. She tries not to take any naps during the day. She can easily nap if she is given the opportunity to do so. Her sleep is fragmented. No sleep paralysis. No hallucinations. No cataplexy. No nighttime chest pain. No shortness of breath. No heartburn. No nocturnal seizures. No anxiety. No depression. No night terrors. The patient is a chronic smoker. Comorbid conditions include diabetes mellitus, hypertension, hyperlipidemia. No 70 coronary artery disease and no stroke. Review of Systems Constitutional: Reports daytime sleepiness, Reports fatigue Eyes: denies as per HPI, denies blurred vision, denies bulging eye, denies decreased vision, denies diplopia, denies discharge, denies dry eye, denies irritation, denies itching, denies pain, denies photophobia, denies loss of peripheral vision, denies loss of vision, denies tunnel vision/blind spots Ears: deny: decreased hearing, ear discharge, earache, tinnitus Ears, nose, mouth and throat: Reports as per HPI Breasts: absent: as per HPI, change in shape, gynecomastia, masses, nipple discharge, pain, skin changes, swelling Cardiovascular: Reports as per HPI Respiratory: Reports snoring Gastrointestinal: Reports as per HPI Genitourinary: Reports as per HPI Menstruation: Reports as per HPI Musculoskeletal: Reports as per HPI Musculoskeletal: absent: ankle pain, ankle stiffness, ankle swelling, as per HPI, elbow pain, elbow stiffness, elbow swelling, foot pain, foot stiffness, foot swelling, hand pain, hand stiffness, hand swelling, hip pain, hip stiffness, hip swelling, knee pain, knee stiffness, knee swelling, shoulder pain, shoulder stiffness, shoulder swelling, wrist pain, wrist stiffness, wrist swelling Integumentary: Reports as per HPI Neurological: Reports as per HPI Psychiatric: Reports as per HPI Endocrine: Reports as per HPI, Reports fatigue Hematologic/Lymphatic: Reports as per HPI Allergic/Immunologic: Reports as per HPI Past Medical History Past Medical History: Diabetes Mellitus, Hearing Disorder / Deafness, Hyperlipidemia, Hypertension, Skin Disorder, Sleep Apnea/CPAP/BIPAP Additional Past Medical History / Comment(s): VARICOSE VEINS, slightly hearing impaired bilateral, no CPAP used, rash on scalp, History of Any Multi-Drug Resistant Organisms: None Reported Past Surgical History: Bariatric Surgery, Ear Surgery, Tonsillectomy Additional Past Surgical History / Comment(s): nasal septum, LAP BAND placed 12/2003 then removed due to prolapse in 2014. mult WILLIAM EAR tubes as child, rt ear drum reconstrucion, laser eye surgery-william Past Anesthesia/Blood Transfusion Reactions: Motion Sickness Past Psychological History: Depression Past Alcohol Use History: Occasional Past Drug Use History: None Reported - Past Family History Sister(s) Family Medical History: Cancer Mother Family Medical History: Cancer Medications and Allergies Home Medications and Allergies Comment(s): Noted the patient is not taking Seroquel for now. She was also started on Mounjaro for diabetes and weight loss , is taking 5 mg 1 injection every week. She is also on Tresiba 17 units at bedtime. Home Medications Medication Instructions Recorded Confirmed Type metFORMIN HCL [Glucophage] 850 mg PO BID 10/31/16 04/21/23 History Albuterol Inhaler [Ventolin Hfa 1 - 2 puff INHALATION RT-Q6H PRN 02/05/18 04/21/23 History Inhaler] lisinopriL [Zestril] 5 mg PO DAILY 02/05/18 04/21/23 History Atorvastatin [Lipitor] 20 mg PO HS 04/21/23 04/21/23 History Azithromycin [Zithromax] 500 mg PO DAILY #5 tab 04/21/23 Rx Insulin Detemir [Levemir Flexpen] 60 units SQ BID 04/21/23 04/21/23 History Lutein 20 mg PO DAILY 04/21/23 04/21/23 History Multivitamins, Thera [Multivitamin 1 tab PO DAILY 04/21/23 04/21/23 History (formulary)] QUEtiapine [SEROquel] 50 mg PO HS 04/21/23 04/21/23 History Tirzepatide [Mounjaro] 5 mg SQ TH 04/21/23 04/21/23 History Allergies Allergy/AdvReac Type Severity Reaction Status Date / Time Penicillins Allergy Unknown Verified 04/21/23 16:58 Childhood adhesive AdvReac BLISTERS Verified 04/21/23 16:58 METALS AdvReac Rash/Hives Uncoded 04/21/23 15:44 Physical Exam BP is 167/94, pulse is 84, respirations 18, temperature 97.8, pulse ox is 97% on room air oxygen. Body mass index is 37.7, Coolin score is at 14. Side of the neck is 15.5 and the temperature is 97.8 and weight is 235 pounds. Gen. appearance the patient has no major respiratory distress. Calm and comfortable on room air oxygen. The patient appeared well nourished and normally developed. Vital signs as documented. Head exam is unremarkable. No scleral icterus or corneal arcus noted. Neck is without jugular venous distension, thyromegaly, or carotid bruits the patient has micrognathia. The patient has been hepatic S1.. Carotid upstrokes are brisk bilaterally. Lungs are clear to auscultation and percussion. Cardiac exam reveals the PMI to be normally sized and situated. Rhythm is regular. First and second heart sounds normal. No murmurs, rubs or gallops. Abdominal exam reveals normal bowel sounds, no masses, no organomegaly and no aortic enlargement. Extremities are nonedematous and both femoral and pedal pulses are normal. Examination of the skin revealed no evidence of significant rashes, suspicious appearing nevi or other concerning lesions. Neurologically, the patient is awake and alert and the patient does not have any focal neurological deficit. Cranial nerves are essentially intact. Assessment and Plan Plan: Obstructive sleep apnea, diagnosed many years back and the patient has not had a chance to be treated and she has become actively symptomatic and she is coming in for an evaluation. She is committed to treatment if diagnosis established Chronic hypersomnia with an Coolin score of 14 Micrognathia with a Mallampati class I Obesity with a BMI of 37.7 Diabetes mellitus type 2 Hypertension Hyperlipidemia Plan We'll set up this patient for a screening polysomnogram to be established diagnosis of sleep apnea and decide on treatment options. Encourage weight loss Maintain regular sleep schedule Improved sleep hygiene measures Treat comorbidities We'll continue to follow Sleep Note - Sleep Note Sleep Note: Temperature: Pulse Rate: Respiratory Rate: Blood Pressure: SpO2: Height: Weight: BMI: Neck Circumference:
== END ==
LOC: 3 N SLEEP 14:59
PROVIDERS: ATTEND Internal Medicine Critical Care Medicine
DX: G47.33 Obstructive sleep apnea (adult) (pediatric) (principal); G47.10 Hypersomnia, unspecified; M26.213 Malocclusion, Angle's class III; M26.09 Other specified anomalies of jaw size; E66.9 Obesity, unspecified; E11.9 Type 2 diabetes mellitus without complications; I10 Essential (primary) hypertension; E78.5 Hyperlipidemia, unspecified; Z68.37 Body mass index [BMI] 37.0-37.9, adult; Z99.89 Dependence on other enabling machines and devices; Z98.890 Other specified postprocedural states; F32.A Depression, unspecified; F17.200 Nicotine dependence, unspecified, uncomplicated; H91.90 Unspecified hearing loss, unspecified ear; Z88.0 Allergy status to penicillin; Z91.048 Other nonmedicinal substance allergy status; Z91.09 Other allergy status, other than to drugs and biological substances; Z79.84 Long term (current) use of oral hypoglycemic drugs; Z79.4 Long term (current) use of insulin
CPT/HCPCS: 99211

== ENCOUNTER 2023-08-09 19:40 | Outpatient (CLI) | payer MEDICAID ==
--- NOTE | 2023-08-21 22:37 | P.PCN ---
Date of Procedure: 08/09/23 Operative Findings: Polysomnography report Date of service is 08/09/2023 Pertinent history This is a 58-year-old female patient came in to see me at the sleep center regarding symptoms of obstructive sleep apnea. The patient was diagnosed having ERNST many years back. Back then, due to insurance related issues, the patient was unable to receive any treatment. The patient came in for reevaluation. The patient had an [place] score of 14. The patient also complained of chronic hypersomnia sleepiness during the day. 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 She is having some difficulty in concentration and memory. She is not en bloc. She has comorbid condition including diabetes, hypertension hyperlipidemia. No history of any coronary artery disease. She has Mallampati class I with some micrognathia. Pertinent physical findings The patient's height is 5 feet and 6 inches, weight is down 35 pounds with a body mass index of 37.9 Technical description The patient was studied using a standard complex polysomnography protocol that included recording of the 2 EKG, Central, occipital and frontal EEG, right and left outer canthus EOG, submental EMG, right and left anterior tibialis EMG, respiratory airflow by thermocouple and or pressure/flow transducer, respiratory efforts by abdominal and thoracic PVDF belts, oxygen saturation by cable oximetry. Position by observation synchronized the PSGEquipment used: [employer]. Sleep architecture The total recording duration was 449.0 minutes. Total sleep time was 422.5 minutes. The sleep efficiency was calculated to be at 94.1%. The latency to sleep onset was 8.5 minutes and the latest REM sleep was 120 minutes. The sleep architecture was characterized by 70.4% stage II, 4.3% stage I, 40.2% stage III and XI 0.1% REM sleep The total arousal index was 7.4 Sleep continuity summary The patient had a total of 52 arousals with an arousal index of 7.4. Respiratory arousal index was 1.1 Periodic limb movement events The patient did not have any significant. Regular movement activity Cardiac summary The average heart rate was 90 with a minimum heart rate of 88 and a maximum heart rate of 93 Respiratory summary The respiratory analysis showed a total of 65 obstructive events of which 22 were obstructive apneas, 0 mixed apneas and 43 were obstructive hypopneas. The resulting AHI was 10.4. Note that the patient's disease was worsening and REM sleep and AHI was 29.4 during REM. Oxygenation analysis The patient had a baseline pulse ox of 94%, lowest oxygen saturation was during non-REM sleep was 82%, the patient spent approximately 12 minutes of the sleep time below pulse ox of 89%. Assessment Mild ERNST with an AHI of 10.4. Mild nocturnal oxygen saturation with a minimum pulse ox of 82% Chronic hypersomnia, [place] score of 14 Obesity BMI of 37.7 Hypertension Hyperlipidemia Diabetes mellitus type 2 Plan This is a case of mild obstructive sleep apnea. The patient is excessively symptomatic and I am not sure whether all of her symptoms of chronic hypersomnia sleepiness and lack of concentration is related to obstructive sleep apnea. Her disease is mild and arousal index is also not significantly elevated. In addition, she does not have any significant active oxygen saturation. Ne vertheless, it will be worthwhile to give the patient a trial of CPAP therapy to see if any of her symptoms will improve while being on CPAP. I am going to offer her CPAP therapy as long as the patient is willing to undertake the treatment with the caveat that the patient may not see the full benefit as his disease is mild. Meanwhile, the patient will make an effort to lose weight and optimize her sleep hygiene measures. The patient will be seen in follow-up and further recommendation will be made accordingly.
== END 2023-08-10 05:45 | disposition home or self-care (01) ==
LOC: 3 N SLEEP 19:40
PROVIDERS: ATTEND Internal Medicine Critical Care Medicine
DX: G47.33 Obstructive sleep apnea (adult) (pediatric) (principal); G47.36 Sleep related hypoventilation in conditions classified elsewhere; G47.10 Hypersomnia, unspecified; E66.9 Obesity, unspecified; I10 Essential (primary) hypertension; E78.5 Hyperlipidemia, unspecified; F17.200 Nicotine dependence, unspecified, uncomplicated; E11.9 Type 2 diabetes mellitus without complications; Z68.37 Body mass index [BMI] 37.0-37.9, adult; Z88.0 Allergy status to penicillin; Z91.048 Other nonmedicinal substance allergy status; Z88.8 Allergy status to other drugs, medicaments and biological substances; Z79.4 Long term (current) use of insulin; Z79.84 Long term (current) use of oral hypoglycemic drugs; Z79.899 Other long term (current) drug therapy; Z79.85 Long-term (current) use of injectable non-insulin antidiabetic drugs
CPT/HCPCS: 95810

== ENCOUNTER 2023-09-27 19:39 | Outpatient (CLI) | payer MEDICAID ==
--- NOTE | 2023-10-03 22:45 | P.PCN ---
Postoperative Diagnosis: CPAP titration report Date of services 09/27/2023 Pertinent history This is a 58-year-old female patient who was diagnosed having a mild case of obstructive sleep apnea with an AHI of 10.4. The patient also encountered mild nocturnal oxygen desaturation with a minimum pulse ox of 82%. The patient suffers from chronic hypersomnia with an Fillmore score of 14. She is morbidly obese with a BMI of 37. She has hypertension hyperlipidemia diabetes mellitus type 2 as comorbid conditions. CPAP therapy was offered to the patient as the patient was having chronic fatigue and sleepiness. The patient is coming into the sleep center to undergo CPAP titration Technical description The patient was studied using a standard complex polysomnography protocol that included recording of the 2 EKG, Central, occipital and frontal EEG, right and left outer canthus EOG, submental EMG, right and left anterior tibialis EMG, respiratory airflow by thermocouple and or pressure/flow transducer, respiratory efforts by abdominal and thoracic PVDF belts, oxygen saturation by cable oximetry. Stepwise CPAP titration was done to eliminate obstructive respiratory events equipment used: [employer]. Sleep architecture The total recording duration was 444.5 minutes. The total sleep time was 386.5 minutes. Sleep efficiency was calculated to be 86.8%. The latency to sleep onset was 8.5 minutes. The latency to REM sleep was 83.5 minutes. The sleep architecture was characterized by 4% stage I, 58.9% stage II, 15.4% stage III, and 21.6% REM sleep. The total arousal index was 8.5. The wake after sleep onset time was 48.5 minutes Respiratory analysis The patient was started on CPAP therapy initially at a pressure of 5 cm of water and the pressure was gradually increased by increments of 1 centimeters to reach a maximum pressure of 10 cm of water. There was improvement in the obstructive respiratory events with CPAP therapy. Nevertheless, the patient continued to have some obstructive hypopneas specially during REM sleep. This was also associated with some nocturnal oxygen saturation with improved with CPAP therapy. At a pressure of 12 centimeters of water, the patient seem to be adequately treated without any significant obstructive hypopneas or apneas even during REM sleep. Sleep continuity summary The patient had a total of 55 arousals with an arousal index of 8.5. Respiratory arousal index was 0.9 Periodic limb movement summary There was a total of 225 periodic limb movement activity with an index of 35. There was for periodic limb movement activity with arousals with an index of 0.6. Cardiac summary Average heart rate was 78 minimum heart rate of 74 and a maximum heart rate of 83 Assessment Symptomatic obstructive sleep apnea with an AHI of 10.4 and the patient underwent successful CPAP titration. Note that during REM sleep, the patient continued to have obstructive hypopneas and apneas which ultimately recovered and CPAP pressure of 12 cm of water. Chronic hypersomnia, Fillmore score of 14 Obesity with a BMI of 37.7 Hypertension Hyperlipidemia Diabetes mellitus type 2 Plan Initiate CPAP therapy. The patient is going to be offered an APAP machine at the starting pressure of 6 and a maximum pressure of 12 and the patient has been fitted to an AirFit F30 I small headgear and medium size fullface mask. The patient will see him back in 30 to 90 days to assess clinical response and compliancy. Will make further adjustment on his treatment based on the patient's clinical response.
== END 2023-09-28 05:20 | disposition home or self-care (01) ==
LOC: 3 N SLEEP 19:39
PROVIDERS: ATTEND Internal Medicine Critical Care Medicine
DX: G47.33 Obstructive sleep apnea (adult) (pediatric) (principal); E66.9 Obesity, unspecified; I10 Essential (primary) hypertension; E78.5 Hyperlipidemia, unspecified; E11.9 Type 2 diabetes mellitus without complications; F17.200 Nicotine dependence, unspecified, uncomplicated; Z68.37 Body mass index [BMI] 37.0-37.9, adult; Z99.89 Dependence on other enabling machines and devices; Z88.0 Allergy status to penicillin; Z91.048 Other nonmedicinal substance allergy status; Z91.09 Other allergy status, other than to drugs and biological substances; Z79.84 Long term (current) use of oral hypoglycemic drugs; Z79.4 Long term (current) use of insulin; Z79.899 Other long term (current) drug therapy; Z79.85 Long-term (current) use of injectable non-insulin antidiabetic drugs
CPT/HCPCS: 95811

== ENCOUNTER → 2023-10-04 | Outpatient (CLI) | payer MEDICAID ==
[2023-10-04 11:14] LABS: HCT 48.3 % (37.2-46.3); HGB 15.4 g/dL (12.0-15.0); MCH 29.4 pg (27.0-32.0); MCHC 31.9 g/dL (32.0-37.0); MCV 92.2 FL (80.0-97.0); NRBC Per 100 WBC 0 X 10*3/uL (0.00-0.01); Platelet Count 398 X 10*3/uL (140-440); RBC 5.24 X 10*6/uL (4.10-5.20); RDW 12.5 % (11.5-14.5); WBC 14.49 X 10*3/uL (4.50-10.00)
[2023-10-04 16:46] LABS: BUN/Creat Ratio 15.75 Ratio (12.00-20.00); Blood Urea Nitrogen 12.6 mg/dL (9.0-27.0); Chloride 106 mmol/L (96-109); Chol/HDL Ratio 6.32 Ratio; Glucose 112 mg/dL (70-110); Potassium 5.3 mmol/L (3.5-5.5); Sodium 143 mmol/L (135-145)
[2023-10-04 16:47] LABS: ALT 23 U/L (8-44); AST 20 U/L (13-35); Albumin 4.1 g/dL (3.8-4.9); Albumin/Globulin Ratio 1.52 Ratio (1.60-3.17); Alkaline Phosphatase 111 U/L (41-126); Carbon Dioxide 27.5 mmol/L (21.6-31.8); Globulin 2.7 g/dL (1.6-3.3); Total Bilirubin 0.2 mg/dL (0.3-1.2); Total Protein 6.8 g/dL (6.2-8.2)
== END | disposition home or self-care (01) ==
LOC: LABWHC1 07:35
PROVIDERS: ATTEND Family Medicine
DX: I10 Essential (primary) hypertension (principal); E78.5 Hyperlipidemia, unspecified; E11.69 Type 2 diabetes mellitus with other specified complication
CPT/HCPCS: 36415; 80053; 80061; 83036; 84443; 85027

== ENCOUNTER → 2023-10-04 | Outpatient (CLI) | payer MEDICAID ==
--- NOTE | 2023-10-10 20:44 | CT ---
EXAMINATION TYPE: CT iac wo con CT DLP: 150.00 mGycm, Automated exposure control for dose reduction was used. DATE OF EXAM: 10/04/2023 7:15 AM INDICATION: Patient age:Female; 58 years old; Reason for study: H92.11 OTORRHEA, RIGHT EAR; PHH. COMPARISON: . TECHNIQUE: Multiple thin axial images were obtained through the temporal bones and internal auditory canals. Additional coronal reformatted images were obtained. No IV contrast was utilized. STENVER a nd POSCHL views were created on a separate work station. CT Contrast: Contrast used: mL of , none. FINDINGS: Right Temporal Bone: External Ear: The external auditory canal is narrowed., right tympanic membrane is difficult to se e as it is surrounded by fluid and/or granulation tissue. Middle Ear: The ossicles demonstrate a normal appearance. Prussak's space is clear and the scutum i s intact. There is no evidence of osseous erosion and the tegmen tympani is intact. Inner Ear: Cochlea, vestibule and semi circular canals are unremarkable. No evidence of carotid alba l dehiscence. Two and a half turns of the cochlea are identified. The vestibular aqueduct is not enl arged. Mastoid Air Cells: The mastoid air cells are clear. The tegmen mastoideum is intact. The aditus ad an trum is clear. Internal Auditory Canal: The internal auditory canal is unremarkable. Left Temporal Bone: External Ear: The left external auditory canal is unremarkable, The tympanic membrane is present and unremarkable. Middle Ear: The ossicles demonstrate a normal appearance. Prussak's space is clear and the scutum i s intact. There is no evidence of osseous erosion and the tegmen tympani is intact. Inner Ear: Cochlea, vestibule and semi circular canals are unremarkable. No evidence of carotid alba l dehiscence. Two and a half turns of the cochlea are identified. The vestibular aqueduct is not enl arged. Mastoid Air Cells: Bilateral mastoidectomy changes. Internal Auditory Canal: The internal auditory canal is unremarkable. IMPRESSION: Right ear seroma or combination otitis externa and otitis media. Left ear otitis media, mild Bilateral sinusitis of the paranasal sinuses. Question of gauze or sponges in the external auditory canals.
== END | disposition home or self-care (01) ==
LOC: RADCTMAIN 06:44
PROVIDERS: ATTEND Otolaryngology
DX: H66.93 Otitis media, unspecified, bilateral (principal)
CPT/HCPCS: 70480

== ENCOUNTER → 2024-04-23 | Outpatient (CLI) | payer MEDICAID ==
[2024-04-23 10:48] LABS: ALT 41 U/L (8-44); AST 23 U/L (13-35); Albumin 4.1 g/dL (3.8-4.9); Albumin/Globulin Ratio 1.52 Ratio (1.60-3.17); Alkaline Phosphatase 123 U/L (41-126); BUN/Creat Ratio 21.38 Ratio (12.00-20.00); Blood Urea Nitrogen 17.1 mg/dL (9.0-27.0); Calcium 9.5 mg/dL (8.7-10.3); Carbon Dioxide 25.8 mmol/L (21.6-31.8); Chloride 105 mmol/L (96-109); Chol/HDL Ratio 3.89 Ratio; Globulin 2.7 g/dL (1.6-3.3); Glucose 130 mg/dL (70-110); LDL Cholesterol,Calculated 88.7 mg/dL (0.0-131.0); Potassium 4.7 mmol/L (3.5-5.5); Sodium 142 mmol/L (135-145); Total Bilirubin <0.2 mg/dL (0.3-1.2); Total Protein 6.8 g/dL (6.2-8.2)
[2024-04-23 11:22] LABS: HCT 44.7 % (37.2-46.3); HGB 14.4 g/dL (12.0-15.0); MCH 29.3 pg (27.0-32.0); MCHC 32.2 g/dL (32.0-37.0); NRBC Per 100 WBC 0 X 10*3/uL (0.00-0.01); Platelet Count 405 X 10*3/uL (140-440); RBC 4.91 X 10*6/uL (4.10-5.20); RDW 13.4 % (11.5-14.5); WBC 15.36 X 10*3/uL (4.50-10.00)
== END | disposition home or self-care (01) ==
LOC: LABWHC1 07:30
PROVIDERS: ATTEND Physician Assistant Medical
CPT/HCPCS: 36415; 80053; 80061; 83036; 84443; 85027

== ENCOUNTER → 2024-05-17 | Outpatient (CLI) | payer MEDICAID ==
--- NOTE | 2024-05-19 14:52 | CTL ---
EXAMINATION TYPE: CT Low Dose Lung DATE OF EXAM ORDERED: 05/17/2024 HISTORY: . Low Dose CT Lung Screening CT DLP: 139.[address] CTDI: 4.0 mGy IV CONTRAST USED: None. SCREENING VISIT: 2 COMPARISON: 12/16/2022 TECHNIQUE: Low dose computed tomography scan was performed through the chest at 1 millimeter thick se ctions and reconstructed images in the coronal plane at [address] DIAGNOSTIC QUALITY: Satisfactory FINDINGS: LUNG NODULES: Not presentLeft lung: no nodules identified.Right lung: no nodules identified. LUNGS: COPD: Severity: Mild Fibrosis: Severity:None Lymph nodes: None Other findings: None RIGHT PLEURAL SPACE: Effusion: None Calcification: None Thickening: None Pneumothorax: None LEFT PLEURAL SPACE: Effusion: None Calcification: None Thickening: None Pneumothorax: None HEART: Heart Size: Mildly enlarged Coronary calcification: Mild Pericardial effusion: None OTHER FINDINGS: Upper abdomen: No significant abnormality Bony thorax: Degenerative changes Supraclavicular region: No significant abnormalityOther: Stable left adrenal adenoma. IMPRESSION: No significant pulmonary nodularity visualized. FOLLOW UP CT CHEST RECOMMENDATION: Follow-up screening in one year CT LUNG RAD: LUNG RAD CATEGORY 1 negative [facility] Arian Martínez, , 05/19/2024 2:50 PM
== END | disposition home or self-care (01) ==
LOC: RADCTMAIN 08:23
PROVIDERS: ATTEND Family Medicine
DX: Z12.2 Encounter for screening for malignant neoplasm of respiratory organs (principal); Z72.0 Tobacco use; I51.7 Cardiomegaly
CPT/HCPCS: 71271